=== PATIENT | male | born 1980 | race Caucasian/White ===

== ENCOUNTER 2025-03-21 20:37 | Emergency (ER) | payer OTHER ==
[2025-03-21 20:44] VITALS: RESP 16; TEMP 97.9
[2025-03-21] MEDS: ACETAMINOPHEN TAB 500 MG TAB PO STA (21:07)
[2025-03-21] MEDS: ONDANSETRON ODT 4 MG TAB PO STA (21:07)
--- NOTE | 2025-03-21 21:07 | ED ---
Head Injury HPI - General Chief complaint: Head Injury Stated complaint: Head injury Time Seen by Provider: 03/21/25 20:38 Source: patient, EMS, RN notes reviewed Mode of arrival: EMS Limitations: no limitations - History of Present Illness Initial comments: This is a 45-year-old male who presents to the emergency department for a head injury. Patient was playing basketball at [employer] and fell, hitting the back of his head. Reports temporary loss of consciousness, but is unsure for how long. Not taking any blood thinners. Currently complains of a severe headache and nausea. Denies sustaining any other injuries. MD Complaint: head injury - Related Data Allergies/Adverse reactions: Allergies Allergy/AdvReac Type Severity Reaction Status Date / Time sulfamethoxazole Allergy Rash/Hives Verified 03/21/25 20:44 [From Bactrim] trimethoprim [From Bactrim] Allergy Rash/Hives Verified 03/21/25 20:44 Review of Systems ROS Statement: Those systems with pertinent positive or pertinent negative responses have been documented in the HPI. ROS Other: All systems not noted in ROS Statement are negative. Past Medical History Past Medical History: Asthma, Hyperlipidemia History of Any Multi-Drug Resistant Organisms: None Reported Past Surgical History: No Surgical Hx Reported Past Psychological History: ADD/ADHD, Anxiety, Schizophrenia Smoking Status: Current every day smoker Past Alcohol Use History: Occasional Past Drug Use History: Cocaine General Exam Limitations: no limitations General appearance: alert, in no apparent distress Head exam: Present: atraumatic, normocephalic, normal inspection Eye exam: Present: normal appearance, PERRL, EOMI. Absent: scleral icterus, conjunctival injection, periorbital swelling Respiratory exam: Present: normal lung sounds bilaterally. Absent: respiratory distress, wheezes, rales, rhonchi, stridor Cardiovascular Exam: Present: regular rate, normal rhythm Neurological exam: Present: alert, oriented X3, CN II-XII intact Psychiatric exam: Present: normal affect, normal mood Skin exam: Present: warm, dry, intact, normal color. Absent: rash Course Vital Signs 03/21/25 03/21/25 20:38 22:19 Temperature 97.9 F Pulse Rate 94 69 Respiratory 16 16 Rate Blood Pressure 107/73 122/78 O2 Sat by Pulse 95 98 Oximetry Medical Decision Making - Medical Decision Making This is a 45 year old male who presents to the emergency department for a head injury. Was pt. sent in by a medical professional or institution? @ -No Did you speak to anyone other than the patient for history? @ -No Did you review nursing and triage notes? @ -Yes, and I agree, it is accurate with regards to the patient's symptoms. Were old charts reviewed? @ -No Differential Diagnosis? @ -Differential Diagnosis Head Injury: Contusion, hematoma, intracranial hemorrhage, skull fracture, whiplash, concussion, this is not meant to be an all-inclusive list. EKG interpreted by me (3pts min.)? @ -Not obtained X-rays interpreted by me (1pt min.)? @ -Not obtained CT interpreted by me (1pt min.)? @ -Computed tomography scan of the brain and c-spine obtained. My interpretation identifies no evidence of an acute intracranial hemorrhage, skull fracture, or cervical spine fracture. U/S interpreted by me (1pt. min.)? @ -Not obtained What testing was considered but not performed? (CT, X-rays, U/S, labs)? Why? @ -None What meds were considered but not given? Why? @ -None Did you discuss the management of the patient with other professionals? @ -No Did you reconcile home meds? @ -No Was smoking cessation discussed for >3mins.? @ -No Was critical care preformed (if so, how long)? @ -No Were there social determinants of health that impacted care today? How? (Homelessness, low income, unemployed, alcoholism, drug addiction, transportation, low edu. Level, literacy, decrease access to med. care, [facility], rehab)? @ -Rehab, where the event took place Was there de-escalation of care discussed even if they declined? (Discuss DNR or withdrawal of care, Hospice)? @ -No What co-morbidities impacted this encounter? (DM, HTN, Smoking, COPD, CAD, Cancer, CVA, Hep., AIDS, mental health diagnosis, sleep apnea, morbid obesity)? @ -None Was patient admitted / discharged? @ -Discharged. Given that the patient had a severe headache with nausea/vomiting, and loss of consciousness (unknown duration), a CT scan of the brain and C-spine was obtained. The CT scan identified no acute process. Tylenol and Zofran administered for symptomatic management. Advised he continue with ibuprofen and Tylenol as needed for any additional headaches. Patient discharged back to [employer] in stable condition. Case discussed with ED attending Dr. Hood. Return precautions reviewed in depth, the patient is instructed to return to the emergency department with any new, worsening, or concerning symptoms. Patient verbalized understanding. Undiagnosed new problem with uncertain prognosis? @ -None Drug Therapy requiring intensive monitoring for toxicity (Heparin, Nitro, Insulin, Cardizem)? @ -None Were any procedures done? @ -None Diagnosis/symptom? @ -Fall, head injury Acute, or Chronic, or Acute on Chronic? @ -Acute Uncomplicated (without systemic symptoms) or Complicated (systemic symptoms)? @ -Uncomplicated Side effects of treatment? @ -None Exacerbation, Progression, or Severe Exacerbation] @ -Not applicable Poses a threat to life or bodily function? @ -No - Radiology Data Radiology results: report reviewed, image reviewed Disposition Clinical Impression: Closed head injury, Fall Disposition: HOME SELF-CARE Additional Instructions: Return to the emergency department with any new, worsening, or concerning symptoms. Alternate with ibuprofen and Tylenol as needed for discomfort. Is patient prescribed a controlled substance at d/c from ED?: No Referrals: Nonstaff,Physician [REFERRING] - 1-2 days Time of Disposition: 22:05
--- NOTE | 2025-03-21 21:35 | CT ---
EXAMINATION TYPE: CT brain cspine wo con CT DLP: 1701.7 mGycm, Automated exposure control for dose reduction was used. DATE OF EXAM: 03/21/2025 9:28 PM COMPARISON: None.. CLINICAL INDICATION:Male, 45 years old with history of Head injury; , pain TECHNIQUE: Brain: Multiple axial CT images of the brain were obtained without IV contrast. Cspine: Axial CT images from the skull base to the inferior aspect of T2 we obtained without intraven ous contrast. Coronal and sagittal reformatted images were also reviewed. FINDINGS: Brain: Extra-axial spaces: No abnormal extra-axial fluid collections. Ventricular system: Within normal limits Cerebral parenchyma: No acute intraparenchymal hemorrhage or mass effect. The razo-white junction is well differentiated. Cerebellum: Unremarkable. Mass effect: No evidence of midline shift. Intracranial vasculature: unremarkable Soft tissues: Normal. Calvarium/osseous structures: No depressed skull fracture. Paranasal sinuses and mastoid air cells: Clear. Visualized orbits: Orbital contents are intact. Cervical spine: Fracture: None. Osseous structures: Unremarkable Vertebral alignment: Within normal limits. Spinal canal/Neural Foramina: No evidence of significant spinal canal narrowing. No evidence for sign ificant neural foraminal stenosis. Neck soft tissues: Prevertebral soft tissues are within normal limits. Other: The airway is patent. Minimal biapical pleural-parenchymal scarring with minimal left apical p araseptal emphysematous change. IMPRESSION: 1. No acute intracranial process. 2. No evidence of cervical spine fracture. [facility], , 03/21/2025 9:32 PM
[2025-03-21 22:20] VITALS: BP 122/78; PULSE 69
== END 2025-03-21 22:20 | disposition home or self-care (01) ==
LOC: EC 20:37
DX: S09.90XA Unspecified injury of head, initial encounter (principal); F17.200 Nicotine dependence, unspecified, uncomplicated; Z88.2 Allergy status to sulfonamides; W01.198A Fall on same level from slipping, tripping and stumbling with subsequent striking against other object, initial encounter; Y93.67 Activity, basketball
CPT/HCPCS: 70450; 72125; 99284